=== PATIENT | male | born 1965 | race Caucasian/White ===

== ENCOUNTER 2021-11-02 20:27 | Emergency (ER) | payer SELFPAY ==
[~2021-11-02] VITALS: Ht 177.8 cm; Wt 81.6 kg
[2021-11-02] MEDS ORDERED: CLEOCIN HCL300 MG PO (20:59)
[2021-11-02] MEDS ORDERED: BACTRIM DS TAB1 EACH PO (20:59)
[2021-11-02] MEDS ORDERED: CLINDAMYCIN HCL 150 MG CAP PO ONE (21:00)
[2021-11-02] MEDS ORDERED: TRIMETHOPRIM/SULFAMETHOXAZOLE 160-800 MG TAB PO ONE (21:00)
[2021-11-02] MEDS ORDERED: CLINDAMYCIN 600MG / 50ML 50 ML IV ONE (21:07)
[2021-11-02] MEDS ORDERED: TRIMETHOPRIM/SULFAMETHOXAZOLE 160-800 MG TAB ONE (21:15)
== END 2021-11-02 21:08 | disposition home or self-care (01) ==
LOC: ER 20:39
DX: L03.113 Cellulitis of right upper limb (principal); S50.861A Insect bite (nonvenomous) of right forearm, initial encounter; E11.9 Type 2 diabetes mellitus without complications
CPT/HCPCS: 99282

== ENCOUNTER 2022-03-10 05:15 | Emergency (ER) | payer OTHER ==
[~2022-03-10] VITALS: Ht 177.8 cm; Wt 81.6 kg
[~2022-03-10 05:15] MED LIST: BACTRIM DS TAB1 EACH PO; CLEOCIN HCL300 MG PO
[2022-03-10 06:29] LABS: BASOPHILS % 0.6 % (0.0-1.0); EOSINOPHILS # (AUTO) 0.1 (0.0-0.4); EOSINOPHILS % 2.5 % (0.0-6.0); HEMATOCRIT 35.6 % (38.2-49.6); HEMOGLOBIN 10.7 g/dL (14.0-18.0); LYMPHOCYTES # (AUTO) 0.9 (1.0-3.2); LYMPHOCYTES % 17.7 % (18.0-39.1); MEAN CORPUSCULAR HEMOGLOBIN 29.2 pg (28-32); MEAN CORPUSCULAR HGB CONC 30.1 g/dL (31-35); MEAN CORPUSCULAR VOLUME 97.3 fL (81-99); MONOCYTES # (AUTO) 0.6 (0.2-0.8); MONOCYTES % 11.1 % (4.4-11.3); NEUTROPHILS # (AUTO) 3.5 (2.1-6.9); NEUTROPHILS % 67.9 % (38.7-80.0); PLATELET COUNT 231 x10e3/uL (140-360); RED BLOOD COUNT 3.66 x10e6/uL (4.3-5.7); RED CELL DISTRIBUTION WIDTH 12.8 % (11.7-14.4)
[2022-03-10] MEDS ORDERED: KETOROLAC TROMETHAMINE 30 MG/ML VIAL IV STA (06:46)
[2022-03-10 06:51] LABS: ALBUMIN/GLOBULIN RATIO 0.6 (0.8-2.0); ANION GAP 12.2 mmol/L (8-16); CALCIUM 8.4 mg/dL (8.4-10.2); CREATININE, SERUM 0.79 mg/dL (0.72-1.25); POTASSIUM 4.2 mmol/L (3.5-5.1)
[2022-03-10] MEDS ORDERED: DEXAMETHASONE 4 MG TAB PO STA (08:07)
[2022-03-10] MEDS ORDERED: BACTRIM DS TAB1 EACH PO (08:11)
[2022-03-10] MEDS ORDERED: DICLOFENAC35 MG PO (08:11)
[2022-03-10 09:31] VITALS: BP 121/63
== END 2022-03-10 08:35 | disposition home or self-care (01) ==
LOC: ER 05:20
DX: L03.116 Cellulitis of left lower limb (principal); M13.862 Other specified arthritis, left knee; M13.842 Other specified arthritis, left hand; E11.65 Type 2 diabetes mellitus with hyperglycemia; Z87.442 Personal history of urinary calculi
CPT/HCPCS: 36415; 73130; 73562; 80053; 85025; 99284; J1885; J8540

== ENCOUNTER 2022-03-19 15:57 | Emergency (ER) | payer OTHER ==
[~2022-03-19] VITALS: Ht 177.8 cm; Wt 79.4 kg
[~2022-03-19 15:57] MED LIST changes: +DICLOFENAC35 MG PO
[2022-03-19] MEDS ORDERED: SODIUM CHLORIDE 0.9% 1000ML 1,000 ML IV SCH ×2 (16:30)
[2022-03-19] MEDS ORDERED: SODIUM CHLORIDE 0.9% 1000ML 2,000 ML ONE (17:29)
[2022-03-19] MEDS ORDERED: METFORMIN HCL500 MG PO (18:55)
[2022-03-19 19:08] VITALS: BP 105/52
== END 2022-03-19 19:08 | disposition home or self-care (01) ==
LOC: FSED 16:03
DX: R44.3 Hallucinations, unspecified (principal); E11.65 Type 2 diabetes mellitus with hyperglycemia; M62.82 Rhabdomyolysis; L89.891 Pressure ulcer of other site, stage 1; F11.10 Opioid abuse, uncomplicated; I10 Essential (primary) hypertension
CPT/HCPCS: 36415; 70450; 71046; 80048; 80076; 80307; 81003; 82553; 82948; 84484; 85025; 99284; J7030

== ENCOUNTER 2022-03-31 12:54 | Emergency (ER) | payer OTHER ==
[~2022-03-31] VITALS: Ht 177.8 cm; Wt 79.4 kg
[~2022-03-31 12:54] MED LIST changes: +METFORMIN HCL500 MG PO
[2022-03-31] MEDS ORDERED: SODIUM CHLORIDE 0.9% 1000ML 1,000 ML IV ONE (13:15)
[2022-03-31 13:25] LABS: BASOPHILS % 0.4 % (0.0-1.0); EOSINOPHILS # (AUTO) 0.1 (0.0-0.4); EOSINOPHILS % 1.1 % (0.0-6.0); HEMATOCRIT 29.9 % (38.2-49.6); HEMOGLOBIN 9.5 g/dL (14.0-18.0); LYMPHOCYTES % 11.6 % (18.0-39.1); MEAN CORPUSCULAR HEMOGLOBIN 29.4 pg (28-32); MEAN CORPUSCULAR HGB CONC 31.8 g/dL (31-35); MEAN CORPUSCULAR VOLUME 92.6 fL (81-99); MONOCYTES # (AUTO) 0.6 (0.2-0.8); MONOCYTES % 6.7 % (4.4-11.3); NEUTROPHILS # (AUTO) 6.5 (2.1-6.9); NEUTROPHILS % 79.8 % (38.7-80.0); PLATELET COUNT 232 x10e3/uL (140-360); RED BLOOD COUNT 3.23 x10e6/uL (4.3-5.7); RED CELL DISTRIBUTION WIDTH 14.3 % (11.7-14.4)
[2022-03-31 13:46] LABS: ALBUMIN 2.5 g/dL (3.5-5.0); ALBUMIN/GLOBULIN RATIO 0.6 (0.8-2.0); ANION GAP 14.7 mmol/L (8-16); CALCIUM 8.3 mg/dL (8.4-10.2); CREATININE, SERUM 0.89 mg/dL (0.72-1.25); POTASSIUM 3.7 mmol/L (3.5-5.1)
[2022-03-31] MEDS ORDERED: BACTRIM DS TAB1 EACH PO (16:03)
[2022-03-31] MEDS ORDERED: CEPHALEXIN500 MG PO (16:03)
[2022-03-31] MEDS ORDERED: ONDANSETRON HCL 4 MG ORAL DISINTEGRATING TAB PO ONE (17:00)
== END 2022-03-31 17:29 | disposition home or self-care (01) ==
LOC: ER 13:06
DX: R44.3 Hallucinations, unspecified (principal); L03.114 Cellulitis of left upper limb; L03.113 Cellulitis of right upper limb; F11.10 Opioid abuse, uncomplicated; R94.31 Abnormal electrocardiogram [ECG] [EKG]; I10 Essential (primary) hypertension; E11.65 Type 2 diabetes mellitus with hyperglycemia
CPT/HCPCS: 36415; 70450; 80053; 84484; 85025; 93005; 99284; J7030